=== PATIENT | female | born 1995 | race Asian ===

== ENCOUNTER 2023-11-18 09:45 | Emergency (ER) | payer OTHER ==
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
[2023-11-18 10:40] VITALS: BP 113/84; O2SAT 99
== END 2023-11-18 10:34 | disposition home or self-care (01) ==
LOC: ED 09:45
DX: S16.1XXA Strain of muscle, fascia and tendon at neck level, initial encounter (principal); S46.911A Strain of unspecified muscle, fascia and tendon at shoulder and upper arm level, right arm, initial encounter; S46.912A Strain of unspecified muscle, fascia and tendon at shoulder and upper arm level, left arm, initial encounter; V89.2XXA Person injured in unspecified motor-vehicle accident, traffic, initial encounter; Y92.410 Unspecified street and highway as the place of occurrence of the external cause
CPT/HCPCS: 99282; 99283